=== PATIENT | female | born 1965 | race Caucasian/White ===

== ENCOUNTER 2025-07-18 14:37 | Emergency (ER) | payer OTHER ==
[~2025-07-18] VITALS: Ht 175.3 cm; Wt 73.2 kg
[2025-07-18 14:43] VITALS: BP 134/56; PULSE 85; RESP 16; O2SAT 95
--- NOTE | 2025-07-18 15:26 | Physician Documentation ---
History of Present Illness ~ Chief Complaint: Needlestick Stated Complaint: EXPOSURE Time Seen by MD: 15:00 HPI Patient states she was accidentally stuck in the right thumb with a exposed needle one surgery today. Patient has no other concern or complaint at this time. Medication Reconciliation Allergies: Coded Allergies: No Known Allergies (Unverified , 07/18/25) Review of Systems Constitutional: Denies: chills, fever, weakness Eyes: Denies: pain, blurred vision ENT: Denies: ear pain, nose pain, throat pain, mouth pain Respiratory: Denies: cough, shortness of breath Cardiovascular: Denies: chest pain, palpitations Gastrointestinal: Denies: abdominal pain, nausea, vomiting Genitourinary: Denies: burning, dysuria Female Genitalia: Denies: vaginal discharge, pelvic pain Neurological: Denies: headache, dizziness Musculoskeletal: Denies: pain, swelling Integumentary: Denies: rash, lesions Allergic/Immunologic: Denies: hives, itching Hematologic/Lymphatic: Denies: no symptoms reported Psychiatric: Denies: depression, anxiety Physical Exam Vital Signs: Temperature: 98.1, Source: Temporal, Heart Rate: 85, Respiratory Rate: 16, BP: 134/56, Pulse Oximetry: 95, Weight: 73.200 Physical Exam General: Awake and Alert, no acute distress. HEENT: Conjunctiva pink, Sclera clear, Mucus Membranes moist. Neck: Supple without masses and tenderness. Resp: Unlabored. Lungs clear to auscultation bilaterally. Heart: Regular Rate and rhythm, normal S1 and S2 without murmur, rub or gallop. Musculoskeletal: Patient on exam does have small needle stick emily in the palmar aspect of the right thumb. Extremities: No cyanosis,clubbing or edema. Skin: Warm and Dry. Progress Results/Orders Results/Orders Vital Signs 07/18/25 14:43 Temp 98.1 Pulse 85 Resp 16 B/P (MAP) 134/56 Pulse Ox 95 Medical Decision Making Findings Patient states she was accidentally stuck in the right thumb with a exposed n eedle one surgery today. Patient has no other concern or complaint at this time. Patient did have the routine labs drawn for needlestick of communicable disease. Patient will follow up for results. Patient will return to ED with any worsening, concerning or changing symptoms Departure Disposition: 01 HOME / SELF CARE / HOMELESS Impression: Primary Impression: Needlestick injury accident Condition: Stable Discharge Instructions: Needlestick and Sharps Injury Additional Instructions: Patient did have the routine labs drawn for needlestick of communicable disease. Patient will follow up for results. Patient will return to ED with any worsening, concerning or changing symptoms Referrals: NO PRIMARY CARE PROVIDER (PCP) Signature Scribe Signature: No scribe Attestation: No scribe JOANNA ALVAREZ PAC Jul 18, 2025 15:25
[2025-07-18 15:30] VITALS: TEMP 98.1
== END 2025-07-18 15:32 | disposition home or self-care (01) ==
LOC: ER 14:38
DX: Z77.21 Contact with and (suspected) exposure to potentially hazardous body fluids (principal); W46.0XXA Contact with hypodermic needle, initial encounter; Y93.89 Activity, other specified; Y92.89 Other specified places as the place of occurrence of the external cause; Y99.0 Civilian activity done for income or pay
CPT/HCPCS: 36415; 86703; 86704; 86705; 99283